=== PATIENT | male | born 1955 | race Caucasian/White ===

== ENCOUNTER → 2018-01-29 | Outpatient (CLI) | payer OTHER ==
[~2018-01-29] MED LIST: IBUP-1428 PO; PRLSR20 PO
--- NOTE | 2018-01-29 12:27 | DIAGNOSTIC IMAGING REPORT ---
L-SPINE FLEX/EXT BENDING MIN 6 CLINICAL HISTORY: 62 years-old Male presenting with LUMBAGO. TECHNIQUE: Frontal, bilateral oblique, lateral, and coned in lateral views of the lumbar spine were obtained. Additionally, lateral views of the lumbar spine were obtained in flexion and extension. COMPARISON: None. FINDINGS: In neutral positioning, no significant scoliosis. Normal lumbar lordosis. Vertebral bodies maintain normal height and alignment with the exception of the L5-S1 level. At this level there is grade 1 anterolisthesis of L5 on S1. Intervertebral disc spaces preserved also with the exception of L5-S1, which suggests disc height loss as well as vacuum disc phenomenon. Bilateral pars defects of L5 suggested. Osseous neural foraminal narrowing at L5-S1 may also be present. No compression deformity. On flexion, slight increased subluxation of L5 on S1, which measures 11 mm in neutral position and 14 mm on flexion. On extension, slight decrease in subluxation of L5 on S1, which measures 9 mm. Surgical clips in the pelvis may indicate prior prostatectomy and lymph node dissection. IMPRESSION: Bilateral pars defects of L5 with grade 1 anterolisthesis of L5 on S1 with minimal worsening on flexion. Suspected osseous neural foraminal narrowing at L5-S1. Electronically signed by: Santy Hood M.D. 01/29/2018 12:26 PM Dictated Date/Time: 01/29/2018 12:20 PM
== END | disposition home or self-care (01) ==
LOC: C.RADBC 11:30
PROVIDERS: ATTEND Physician Assistant Medical
DX: M54.5 Low back pain (principal); M43.06 Spondylolysis, lumbar region; M43.17 Spondylolisthesis, lumbosacral region